=== PATIENT | female | born 1935 | race Caucasian/White ===

== ENCOUNTER 2019-05-14 11:26 | Emergency (ER) | payer MEDICARE ==
--- NOTE | 2019-05-14 12:58 | RAD ---
EXAM: 4 views of the left knee HISTORY: Knee pain after fall COMPARISON: None FINDINGS: No knee effusion is seen. There is no evidence of acute fracture or dislocation. Moderate t o severe tricompartmental joint space narrowing and osteophyte formation is seen consistent with osteoarthritis. No soft tissue swelling is present. IMPRESSION: Moderate osteoarthritis without evidence of acute osseous abnormality.
== END 2019-05-14 13:45 | disposition home or self-care (01) ==
LOC: ERS 11:26
DX: M25.562 Pain in left knee (principal); Z79.82 Long term (current) use of aspirin; Z79.01 Long term (current) use of anticoagulants; Z79.899 Other long term (current) drug therapy; W07.XXXA Fall from chair, initial encounter

== ENCOUNTER 2020-08-09 09:46 | Emergency (ER) | payer MEDICARE ==
[2020-08-09] MEDS ORDERED: Iopamidol-370 76% 500 ML 1 ML ONE (09:49)
[2020-08-09] MEDS ORDERED: HYDROcodone/Acetaminophen 5/325 mg Tablet ONE (10:17)
--- NOTE | 2020-08-09 10:30 | RAD ---
XR Chest 1 View Portable HISTORY: Fall, head injury COMPARISON: None FINDINGS: The heart size is enlarged. The aorta is tortuous. There are changes of median sternotomy a nd valvular surgery. The lungs are well expanded without focal areas of consolidation, pneumothorax or pleural effusions. There are bilateral shoulder joint osteoarthritic changes. IMPRESSION: Cardiomegaly
[2020-08-09 10:35] LABS: #Eosinphils 0.1 thou/uL (0.0-0.7); #Lymphocytes 0.8 thou/uL (1.20-3.40); #Monocytes 0.4 thou/uL (0.11-0.59); %Basophils 0.6 % (0.0-1.0); %Eosinophils 2.3 % (0.0-10.0); %Lymphocytes 15.2 % (21.0-51.0); %Monocytes 6.5 % (0.0-10.0); %Neutrophils 75.5 % (42.0-75.0); Hemoglobin 14.6 g/dL (12.0-16.0); Mean Corpuscular HGB CONC 33.5 g/dL (32.0-36.0); Mean Corpuscular Hemoglobin 32.6 pg (27.0-31.0); Mean Corpuscular Volume 97.1 fL (78.0-98.0); Mean Platelet Volume 7.6 fL (7.4-10.4); Platelet Count 181 thou/uL (130-400); RBC Distribution Width 11.9 % (11.5-14.5); Red Blood Cell (RBC) Count 4.49 mill/uL (4.20-5.40); White Blood Cell (WBC) Count 5.3 thou/uL (4.8-10.8)
[2020-08-09 10:42] LABS: INR-International Normal Ratio 3.7; PTT 42.3 sec (22.9-36.1); Prothrombin Time 37.8 sec (12.0-14.7)
[2020-08-09 10:55] LABS: ALT (SGPT) 12 U/L (8-55); AST (SGOT) 22 U/L (5-34); Albumin 3.7 g/dL (3.4-4.8); Alkaline Phosphatase 85 U/L (40-110); Anion Gap 14 mmol/L (10-20); BUN (Urea Nitrogen) 27 mg/dL (9.8-20.1); Bilirubin, Total 0.6 mg/dL (0.2-1.2); CK (CPK) 55 U/L (29-168); Calc. Creatinine Clearance 0 mL/min (70-130); Calcium 9.1 mg/dL (7.8-10.44); Carbon Dioxide 24 mmol/L (23-31); Chloride 107 mmol/L (98-107); Globulin 3.1 g/dL (2.4-3.5); Glucose 93 mg/dL (83-110); Potassium 4.1 mmol/L (3.5-5.1); Protein, Total 6.8 g/dL (5.8-8.1); Sodium 141 mmol/L (136-145)
[2020-08-09 11:21] LABS: Bilirubin Negative (Negative); Blood, Urine 2+ (Negative); Clarity Clear (Clear); Glucose, Urine (Dipstick) Normal (Negative); Ketone, Urine Negative (Negative); Leukocyte 75 Leu/uL (Negative); Nitrite Negative (Negative); Protein, Urine (Dipstick) 10 mg/dL (Neg-Trace); Specific Gravity, Urine 1.019 (1.002-1.036); Squamous Epithelial 0-3 HPF (0-3); Urobilinogen Normal mg/dL (Less than 2); pH, Urine 5.5 (5.0-9.0)
[2020-08-09 11:22] LABS: Bacteria/HPF 2+ HPF (None Seen)
[2020-08-09] MEDS ORDERED: cefTRIAXone\\ROCEPHIN 1 GM VIAL ONE (11:54)
--- NOTE | 2020-08-09 13:22 | CT ---
CT OF THE BRAIN WITHOUT CONTRAST: Date: 08/09/2020 INDICATION: History of fall with head injury. COMPARISON: None. FINDINGS: There is a contusion involving the right posterior occipital scalp. There is generalized cerebral and cerebellar atrophy. 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 Septum pellucidum and third ventricle are midline. There is an extra-axial, hyperdense, partially calcified mass overlying the right frontal c onvexity measuring 3.6 x 4.6 x 4.4 cm most suspicious for a large extra-axial meningioma. This is cau sing some underlying mass effect of the right frontal lobe. The skull is intact. Mastoid air cells ar e clear. Paranasal sinuses are clear. IMPRESSION: 1. No acute intracranial abnormality. 2. Extra-axial, partially calcified hyperdense mass overlying the right frontal convexity with under lying mass effect is most suspicious for a large meningioma. 3. Moderate chronic small vessel white matter ischemic change. POS: BH
--- NOTE | 2020-08-09 13:28 | CT ---
CT OF THE ABDOMEN AND PELVIS WITH IV CONTRAST: Date: 08/09/2020 INDICATION: History of fall with posterior headache and sacral pain. COMPARISON: None. FINDINGS: There is mild interstitial fibrosis involving both lower lobes. There is a calcified granuloma within the left lower lobe. There are multiple granulomas within the spleen. There is a small gallstone within the gallbladder. T here is a tiny hypodensity within the peripheral aspect of the right hepatic lobe measuring 1.3 cm th at is incompletely characterized on exam and may reflect a tiny hemangioma as there are some peripher al nodular areas of enhancement involving the lesion. No additional focal lesion is evident. There is some fatty atrophy of the pancreas. The adrenal glands are normal appearing. There are bilateral renal cysts. One of the largest is seen measuring 5.7 cm off the inferior pole. T here is an exophytic hyperdense lesion off the lower margin of the left kidney measuring 8.0 mm that is incompletely characterized. There are moderate to severe vascular calcifications. Unopacified large and small bowel are unremarkable appearing. The bladder, rectum, and perirectal sof t tissues are unremarkable appearing. There is a left total hip prosthesis in place. There is healed deformity seen involving the left grea ter trochanter which may reflect a prior periprosthetic fracture. There is a wedge compression abnorm ality with vertebroplasty change at L1. There are age-indeterminate wedge compression abnormalities o f T11, T12, and L3. There is Grade I anterolisthesis of L3 on L4. IMPRESSION: 1. Age-indeterminate wedge compression abnormalities of L3, T12, and L1. 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 2. Healed periprosthetic fracture of the left proximal hip. 3. Hypodensity in the right hepatic lobe, incompletely characterized. Nonemergent follow-up CT of th e abdomen utilizing a hemangioma protocol is recommended. 4. Hyperdense lesion off the lower pole of the left kidney is incompletely characterized, but could be characterized on the multiphase exam recommended for the lesion within the liver. There are bilate ral renal cysts. 5. Small hiatal hernia. 6. Findings of prior granulomatous disease. POS: TARAH
== END 2020-08-09 14:10 ==
LOC: ERS 09:46
DX: S00.03XA Contusion of scalp, initial encounter (principal); N30.90 Cystitis, unspecified without hematuria; D32.9 Benign neoplasm of meninges, unspecified; I10 Essential (primary) hypertension; E78.5 Hyperlipidemia, unspecified; Z79.01 Long term (current) use of anticoagulants; Z79.899 Other long term (current) drug therapy; W19.XXXA Unspecified fall, initial encounter
CPT/HCPCS: 51701; 70450; 71045; 74177; 80053; 81003; 81015; 82550; 84484; 85025; 85610; 85730; 93005; 96365; 96366; J0696; Q9967

== ENCOUNTER 2020-09-22 10:12 | Outpatient (CLI) | payer MEDICARE | END 2020-09-22 10:13 | disposition home or self-care (01) | LOC: MRI 10:12 | PROVIDERS: ATTEND Neurological Surgery | DX: G93.89 Other specified disorders of brain (principal); D32.9 Benign neoplasm of meninges, unspecified | CPT/HCPCS: 70553; 82565 ==

== ENCOUNTER 2021-07-07 15:23 | Outpatient (CLI) | payer MEDICARE | END 2021-07-07 15:24 | disposition home or self-care (01) | LOC: BICRAD 15:23 | PROVIDERS: ATTEND Internal Medicine Cardiovascular Disease | DX: J90 Pleural effusion, not elsewhere classified (principal) | CPT/HCPCS: 71046 ==

== ENCOUNTER 2023-07-01 11:19 | Emergency (ER) | payer MEDICARE ==
[2023-07-01 12:48] LABS: #Monocytes 0.8 thou/uL (0.11-0.59); #Neutrophils 7.4 thou/uL (1.40-6.50); %Basophils 0.1 % (0.0-1.0); %Lymphocytes 4.2 % (21.0-51.0); %Monocytes 9.1 % (0.0-10.0); %Neutrophils 86.1 % (42.0-75.0); Hematocrit 29.9 % (36.0-47.0); Hemoglobin 9.7 g/dL (12.0-16.0); Mean Corpuscular HGB CONC 32.4 g/dL (32.0-36.0); Mean Corpuscular Hemoglobin 26.6 pg (27.0-31.0); Mean Corpuscular Volume 82.1 fl (78.0-98.0); Mean Platelet Volume 10.3 fL (7.4-10.4); Platelet Count 226 10x3/uL (130-400); RBC Distribution Width 17.5 % (11.5-14.5); Red Blood Cell (RBC) Count 3.64 mill/uL (4.20-5.40); White Blood Cell (WBC) Count 8.6 10x3/uL (4.8-10.8)
[2023-07-01 13:07] LABS: ALT (SGPT) 10 U/L (8-55); AST (SGOT) 37 U/L (5-34); Albumin 3.1 g/dL (3.4-4.8); Alkaline Phosphatase 113 U/L (40-110); Anion Gap 15 mmol/L (10-20); BUN (Urea Nitrogen) 16 mg/dL (9.8-20.1); Bilirubin, Total 1.8 mg/dL (0.2-1.2); Calc. Creatinine Clearance 0 mL/min (70-130); Calcium 8.4 mg/dL (7.8-10.44); Carbon Dioxide 25 mmol/L (23-31); Chloride 101 mmol/L (98-107); Estimated GFR 75; Globulin 3.8 g/dL (2.4-3.5); Glucose 143 mg/dL (83-110); Potassium 3.6 mmol/L (3.5-5.1); Protein, Total 6.9 g/dL (5.8-8.1); Sodium 137 mmol/L (136-145)
[2023-07-01 13:16] LABS: SARS-CoV-2 NAA Rapid Test Not Detected (NotDetected)
[2023-07-01 14:52] LABS: Bacteria/HPF 3+ HPF (None Seen); Bilirubin Negative (Negative); Blood, Urine 1+ (Negative); CAUTI Indications for Culture Dysuria,urgency,freq; Clarity Turbid (Clear); Glucose, Urine (Dipstick) Normal (Negative); Ketone, Urine Negative (Negative); Leukocyte 500 Leu/uL (Negative); Nitrite Negative (Negative); Protein, Urine (Dipstick) 50 mg/dL (Neg-Trace); RBC/HPF 0-3 HPF (0-3); Specific Gravity, Urine 1.017 (1.002-1.036); Squamous Epithelial None Seen HPF (0-3); Urobilinogen Normal mg/dL (Less than 2); WBC/HPF Greater than 50 HPF (0-3); pH, Urine 5.5 (5.0-9.0)
[2023-07-01 15:00] LABS: Urine Culture Reflex Yes Yes
[2023-07-01] MEDS ORDERED: Sodium Chloride 0.9% 100 ML ONE (15:25)
[2023-07-01] MEDS ORDERED: cefTRIAXone (ROCEPHIN) 2 GM VIAL ONE (15:25)
[2023-07-01 15:57] LABS: INR-International Normal Ratio 2.3; PTT 42.8 sec (22.9-36.1); Prothrombin Time 26.3 sec (12.0-14.7)
== END 2023-07-01 17:59 | disposition home or self-care (01) ==
LOC: ERS 11:19
DX: N39.0 Urinary tract infection, site not specified (principal); R05.9 Cough, unspecified; R79.89 Other specified abnormal findings of blood chemistry; I10 Essential (primary) hypertension; E78.00 Pure hypercholesterolemia, unspecified; Z79.82 Long term (current) use of aspirin; Z79.899 Other long term (current) drug therapy
CPT/HCPCS: 0240U; 71046; 80053; 81001; 83605; 83880; 85025; 85610; 85730; 87077; 87086; 87186; 93005; 36415; 51701; 96365; J0696; J3490

== ENCOUNTER 2023-09-26 15:26 | Inpatient (IN) | payer MEDICARE, OTHER ==
[2023-09-26 16:57] LABS: Hematocrit 27.9 % (36.0-47.0); Hemoglobin 8.7 g/dL (12.0-16.0); Mean Corpuscular HGB CONC 31.2 g/dL (32.0-36.0); Mean Corpuscular Hemoglobin 24.6 pg (27.0-31.0); Mean Platelet Volume 10.3 fL (7.4-10.4); Platelet Count 238 10x3/uL (130-400); RBC Distribution Width 18.9 % (11.5-14.5); Red Blood Cell (RBC) Count 3.53 mill/uL (4.20-5.40)
[2023-09-26 17:09] LABS: Prothrombin Time 54.5 sec (12.0-14.7)
[2023-09-26 17:10] LABS: PTT 58.2 sec (22.9-36.1)
[2023-09-26 17:14] LABS: ALT (SGPT) 7 U/L (8-55); AST (SGOT) 20 U/L (5-34); Albumin 3.3 g/dL (3.4-4.8); Alkaline Phosphatase 165 U/L (40-110); Anion Gap 14 mmol/L (10-20); BUN (Urea Nitrogen) 15 mg/dL (9.8-20.1); Bilirubin, Total 0.9 mg/dL (0.2-1.2); Calc. Creatinine Clearance 0 mL/min (70-130); Carbon Dioxide 20 mmol/L (23-31); Chloride 107 mmol/L (98-107); Estimated GFR 55; Globulin 3.1 g/dL (2.4-3.5); Glucose 93 mg/dL (83-110); Potassium 3.7 mmol/L (3.5-5.1); Protein, Total 6.4 g/dL (5.8-8.1); Sodium 137 mmol/L (136-145)
[2023-09-26 17:17] LABS: Band 1 % (5-11); Eosinophils 4 % (0-10); Hypochromia SLIGHT = 6-15 cells HPF (0-5); Lymphocytes 15 % (21-51); Macrocytosis SLIGHT = 6-15 cells HPF (0-5); Monocytes 7 % (0-10); Neutrophil 72 % (42-75); Ovalocytes SLIGHT = 2-5 cells HPF (0-1); Platelet Adequacy Comment Platelets Normal; Polychromasia SLIGHT = 2-3 cells HPF (0-2); Schistocytes SLIGHT = 2-5 cells HPF (0-1)
[2023-09-26 17:21] LABS: INR-International Normal Ratio 6.1
[2023-09-26 19:09] LABS: Bacteria/HPF 3+ HPF (None Seen); Bilirubin Negative (Negative); Blood, Urine Negative (Negative); CAUTI Indications for Culture Dysuria,urgency,freq; Clarity Clear (Clear); Glucose, Urine (Dipstick) Normal (Negative); Ketone, Urine Negative (Negative); Leukocyte Negative Leu/uL (Negative); Nitrite Negative (Negative); Protein, Urine (Dipstick) Negative (Neg-Trace); RBC/HPF 0-3 HPF (0-3); Squamous Epithelial 0-3 HPF (0-3)
[2023-09-26 19:11] LABS: Urine Culture Reflex No No
[2023-09-26] MEDS ORDERED: cefTRIAXone (ROCEPHIN) 2 GM VIAL ONE (19:41)
[2023-09-26] MEDS ORDERED: Sodium Chloride 0.9% 100 ML ONE (19:41)
[2023-09-26] MEDS ORDERED: Acetaminophen 650 MG Suppository PR PRN (21:56)
[2023-09-26] MEDS ORDERED: Ondansetron ODT 4 MG TAB PO PRN (21:56)
[2023-09-26] MEDS ORDERED: Ondansetron PF 4 MG/2 ML Vial IVP PRN (21:56)
[2023-09-26 22:33] VITALS: BMI 24.7
[2023-09-26] MEDS: traMADol HCl 50 MG TAB PO PRN (23:28)
[2023-09-26] MEDS: traZODone HCl 50 MG TAB PO PRN (23:28)
[2023-09-27 05:26] LABS: Hematocrit 28.2 % (36.0-47.0); Hemoglobin 8.4 g/dL (12.0-16.0); Mean Corpuscular HGB CONC 29.8 g/dL (32.0-36.0); Mean Corpuscular Hemoglobin 24.1 pg (27.0-31.0); Mean Platelet Volume 10.3 fL (7.4-10.4); Platelet Count 228 10x3/uL (130-400); RBC Distribution Width 19.2 % (11.5-14.5); Red Blood Cell (RBC) Count 3.48 mill/uL (4.20-5.40)
[2023-09-27 05:27] LABS: INR-International Normal Ratio 5.6; Prothrombin Time 51.1 sec (12.0-14.7)
[2023-09-27 05:58] LABS: Anion Gap 14 mmol/L (10-20); BUN (Urea Nitrogen) 16 mg/dL (9.8-20.1); Calc. Creatinine Clearance 52 mL/min (70-130); Calcium 8.2 mg/dL (7.8-10.44); Carbon Dioxide 21 mmol/L (23-31); Chloride 109 mmol/L (98-107); Estimated GFR 62; Glucose 95 mg/dL (83-110); Potassium 3.7 mmol/L (3.5-5.1); Sodium 140 mmol/L (136-145)
[2023-09-27 06:10] LABS: Anisocytosis SLIGHT = 6-15 cells HPF (0-5); Burr Cells SLIGHT = 2-5 cells HPF (0-1); Elliptocytes SLIGHT = 2-5 cells HPF (0-1); Eosinophils 3 % (0-10); Hypochromia SLIGHT = 6-15 cells HPF (0-5); Large Platelets 7.9 % (0-5); Lymphocytes 13 % (21-51); Monocytes 10 % (0-10); Neutrophil 71 % (42-75); Platelet Adequacy Comment Platelets Increased; Poikilocytosis SLIGHT = 6-15 cells HPF (0-5); Polychromasia SLIGHT = 2-3 cells HPF (0-2); Smudge Cells 15.8 %
[2023-09-27] MEDS ORDERED: SIMETHICONE 125 MG PO PRN (08:54)
[2023-09-27] MEDS ORDERED: Metoprolol Tartrate 25 MG TAB PO SCH (09:00)
[2023-09-27] MEDS ORDERED: Non-Formulary Item 1 EACH (Losartan Potassium [Losartan Potassium] 50 MG Tablet) PO SCH (09:00)
[2023-09-27] MEDS ORDERED: Non-Formulary Item 1 EACH (Cyanocobalamin (Vitamin B-12) [Vitamin B-12] 1,000 MCG Capsule PO SCH (09:00)
[2023-09-27] MEDS ORDERED: Torsemide 10 MG TAB PO SCH (09:00)
[2023-09-27] MEDS ORDERED: D MANNOSE 500 MG PO SCH (09:00)
[2023-09-27] MEDS ORDERED: Simethicone Chewable 80 MG TAB PO PRN (09:19)
[2023-09-27] MEDS: Phytonadione 5 MG TAB PO SCH (09:40)
[2023-09-27] MEDS: Metoprolol Tartrate 25 MG TAB PO SCH (09:40)
[2023-09-27] MEDS: Acetaminophen 325 MG TAB PO PRN (09:41)
[2023-09-27] MEDS: Torsemide 10 MG TAB PO SCH (13:17)
[2023-09-27] MEDS: cefTRIAXone\\ROCEPHIN 1 GM in Sodium Chloride 0.9% 100 ML IVPB SCH (21:15)
[2023-09-28 05:31] LABS: INR-International Normal Ratio 1.7; Prothrombin Time 19.9 sec (12.0-14.7)
[2023-09-28 05:32] LABS: Anion Gap 13 mmol/L (10-20); BUN (Urea Nitrogen) 14 mg/dL (9.8-20.1); Calc. Creatinine Clearance 51 mL/min (70-130); Calcium 8.7 mg/dL (7.8-10.44); Carbon Dioxide 19 mmol/L (23-31); Chloride 109 mmol/L (98-107); Estimated GFR 61; Glucose 97 mg/dL (83-110); Sodium 137 mmol/L (136-145)
[2023-09-28 05:33] LABS: Hematocrit 29.1 % (36.0-47.0); Hemoglobin 8.6 g/dL (12.0-16.0); Mean Corpuscular HGB CONC 29.6 g/dL (32.0-36.0); Mean Corpuscular Volume 81.1 fL (78.0-98.0); Mean Platelet Volume 10.3 fL (7.4-10.4); Platelet Count 213 10x3/uL (130-400); Red Blood Cell (RBC) Count 3.59 mill/uL (4.20-5.40)
[2023-09-28 07:30] LABS: Band 2 % (5-11); Burr Cells SLIGHT = 2-5 cells HPF (0-1); Eosinophils 9 % (0-10); Large Platelets 9.6 % (0-5); Lymphocytes 22 % (21-51); Monocytes 8 % (0-10); Neutrophil 57 % (42-75); Platelet Adequacy Comment Platelets Normal; Poikilocytosis SLIGHT = 6-15 cells HPF (0-5); Polychromasia MODERATE = 3-4 cells HPF (0-2); Schistocytes SLIGHT = 2-5 cells HPF (0-1)
[2023-09-28] MEDS: Cyanocobalamin (Vitamin B-12) 1,000 MCG TAB PO SCH (08:40)
[2023-09-28] MEDS: Losartan 25 MG TAB PO SCH (08:42)
[2023-09-28] MEDS: Torsemide 10 MG TAB PO SCH (08:44)
[2023-09-28] MEDS: AZO D MANNOSE PO SCH (09:56)
[2023-09-28] MEDS ORDERED: Warfarin Sodium 5 MG TAB PO SCH (12:45)
[2023-09-28] MEDS: Senokot S 8.6-50 MG TAB PO SCH ×2 (15:51→21:51)
[2023-09-28] MEDS: Warfarin Sodium 2.5 MG TAB PO SCH (17:34)
[2023-09-29 04:13] LABS: INR-International Normal Ratio 1.3
[2023-09-30 05:33] LABS: #Basophils 0.06 10x3/uL (0.0-0.2); %Basophils 1.1 % (0.0-1.0); %Eosinophils 4.6 % (0.0-10.0); %Lymphocytes 21.9 % (21.0-51.0); %Monocytes 10.5 % (0.0-10.0); %Neutrophils 61.5 % (42.0-75.0); Hematocrit 29.1 % (36.0-47.0); Hemoglobin 8.9 g/dL (12.0-16.0); Mean Corpuscular HGB CONC 30.6 g/dL (32.0-36.0); Mean Corpuscular Hemoglobin 24.3 pg (27.0-31.0); Mean Corpuscular Volume 79.5 fL (78.0-98.0); Mean Platelet Volume 10.1 fL (7.4-10.4); Platelet Count 265 10x3/uL (130-400); RBC Distribution Width 19.2 % (11.5-14.5); Red Blood Cell (RBC) Count 3.66 mill/uL (4.20-5.40)
[2023-09-30 05:45] LABS: INR-International Normal Ratio 1.2; Prothrombin Time 14.9 sec (12.0-14.7)
[2023-09-30] MEDS: Warfarin Sodium 5 MG TAB PO SCH (17:07)
[2023-09-30] MEDS: Enoxaparin 80 MG (0.8 mL) SYRINGE SC SCH (20:48)
[2023-10-01 05:42] LABS: INR-International Normal Ratio 1.2
[2023-10-02 06:09] LABS: INR-International Normal Ratio 1.2; Prothrombin Time 15.5 sec (12.0-14.7)
[2023-10-02 08:41] VITALS: TEMP 97.6
[2023-10-02] MEDS: Warfarin Sodium 7.5 MG TAB PO SCH (16:50)
[2023-10-02 17:28] VITALS: BP 119/68
[2023-10-03] MEDS ORDERED: Warfarin Sodium 5 MG TAB PO SCH (17:00)
== END 2023-10-02 17:44 | DRG 948 ==
LOC: ERS 15:26 → T4-A 20:23 → OBSVTOIN 09-27 13:42
PROVIDERS: ADMIT Student in an Organized Health Care Education/Training Program; ATTEND Internal Medicine
DX: R79.1 Abnormal coagulation profile (principal); N39.0 Urinary tract infection, site not specified; E78.5 Hyperlipidemia, unspecified; G89.29 Other chronic pain; B96.20 Unspecified Escherichia coli [E. coli] as the cause of diseases classified elsewhere; D63.8 Anemia in other chronic diseases classified elsewhere; I25.10 Atherosclerotic heart disease of native coronary artery without angina pectoris; Z95.2 Presence of prosthetic heart valve; Z95.1 Presence of aortocoronary bypass graft; Z79.899 Other long term (current) drug therapy; Z79.01 Long term (current) use of anticoagulants; Z79.82 Long term (current) use of aspirin; Z90.710 Acquired absence of both cervix and uterus
CPT/HCPCS: 36415; 36416; 80048; 80053; 81001; 82274; 83605; 85025; 85610; 85730; 87077; 87086; 96365; G0378; J0696; J1650; J3490